=== PATIENT | male | born 1985 | race Two or more races ===

== ENCOUNTER 2016-12-11 20:22 | Emergency (ER) | payer MEDICAID ==
[~2016-12-11] VITALS: Ht 182.9 cm; Wt 113.4 kg
[2016-12-11 20:26] VITALS: BP 123/82
[2016-12-11] MEDS ORDERED: ONDANSETRON 4 MG TAB.RAPDIS ONE (22:28)
[2016-12-11] MEDS ORDERED: MAG HYDROX/AL HYDROX/SIMETH 30 ML UDC ONE (22:28)
[2016-12-11] MEDS ORDERED: MAG HYDROX/AL HYDROX/SIMETH 30 ML UDC PO ONE (22:30)
[2016-12-11] MEDS ORDERED: ONDANSETRON 4 MG TAB.RAPDIS SL ONE (22:30)
[2016-12-12] MEDS ORDERED: TETRACAINE HCL/PF 0.5% UD 2 ML BOTTLE ONE (21:39)
== END 2016-12-11 22:57 | disposition home or self-care (01) ==
LOC: ER 20:27
DX: K21.9 Gastro-esophageal reflux disease without esophagitis (principal); K92.0 Hematemesis; F10.10 Alcohol abuse, uncomplicated
CPT/HCPCS: 99283; A4606; Q0162; Z7610

== ENCOUNTER 2017-10-25 16:43 | Emergency (ER) | payer MEDICAID ==
[~2017-10-25] VITALS: Ht 188 cm; Wt 115.7 kg
[2017-10-25 16:43] VITALS: BP 135/78
[2017-10-25] MEDS ORDERED: ACETAMINOPHEN ES 500 MG TABLET ONE (17:20)
[2017-10-25] MEDS: ACETAMINOPHEN 325 MG TABLET PO ONE (17:24)
== END 2017-10-25 17:26 | disposition home or self-care (01) ==
LOC: ER 16:48
DX: H60.93 Unspecified otitis externa, bilateral (principal); F10.10 Alcohol abuse, uncomplicated; Y90.9 Presence of alcohol in blood, level not specified
CPT/HCPCS: A4606; Z7610

== ENCOUNTER 2019-04-05 19:12 | Emergency (ER) | payer MEDICAID ==
[~2019-04-05] VITALS: Ht 188 cm; Wt 117.9 kg
--- NOTE | 2019-04-05 19:58 | NUR ---
PT PRESENTED TO THE ER WITH A C/O RT EYE PAIN, REDNESS AND ITCHINESS. PT IS ALSO C/O A HEADACHE. PT AMBULATED WITH A STEADY GAIT. PT IS CURRENTLY TAKING OTC EYE DROPS.
[2019-04-05] MEDS ORDERED: FLUORESCEIN SODIUM OPHTH 1 EA STRIP ONE (20:29)
[2019-04-05] MEDS ORDERED: FLUORESCEIN SODIUM OPHTH 1 EA STRIP OP ONE (20:30)
[2019-04-05] MEDS ORDERED: TETRACAINE HCL 0.5% OPHTALMIC 15 ML BOTTLE OP ONE (20:30)
--- NOTE | 2019-04-05 20:35 | NUR ---
TETRICAINE AND FLOUR-I- STRIP IS AT THE BEDSIDE.
--- NOTE | 2019-04-05 20:55 | NUR ---
Chet MIRANDA, PAC IS AT THE BEDSIDE.
--- NOTE | 2019-04-05 21:04 | NUR ---
EYE EXAM IS FINISHED.
--- NOTE | 2019-04-05 21:10 | NUR ---
Chet MIRANDA, PAC IS AT THE BEDSIDE WITH THE NEHEMIAS PEN.
[2019-04-05] MEDS ORDERED: IBUPROFEN 600 MG TABLET PO ONE ×2 (21:30)
[2019-04-05] MEDS ORDERED: ACETAMINOPHEN ES 500 MG TABLET ONE (21:30)
[2019-04-05] MEDS ORDERED: ACETAMINOPHEN 325 MG TABLET PO ONE (21:30)
--- NOTE | 2019-04-05 21:43 | NUR ---
Patient discharged to home in stable condition. Written and verbal after care instructions given. Patient verbalizes understanding of instruction AND RX. PT'S FRIEND IS DRIVING PT HOME. VSS.
[2019-04-05 21:45] VITALS: BP 136/87
== END 2019-04-05 21:45 | disposition home or self-care (01) ==
LOC: ER 19:16
DX: H00.021 Hordeolum internum right upper eyelid (principal)

== ENCOUNTER 2023-01-03 18:54 | Emergency (ER) | payer MEDICAID ==
[~2023-01-03] VITALS: Ht 188 cm; Wt 117.9 kg
[2023-01-03 20:23] VITALS: TEMP 97.8
[2023-01-03 21:25] LABS: BASOPHILS % (AUTO) 0.5 % (0.0-2.0); EOSINOPHILS # (AUTO) 0.2 K/uL (0.0-0.7); EOSINOPHILS % (AUTO) 2.1 % (0.0-6.0); HEMATOCRIT 42 % (39-51); HEMOGLOBIN 14.2 g/dL (13.5-17.5); LYMPHOCYTES # (AUTO) 2.7 K/uL (0.8-4.8); LYMPHOCYTES % (AUTO) 37.2 % (20.0-44.0); MEAN CORPUSCULAR HEMOGLOBIN 31 PG (26.0-33.0); MEAN CORPUSCULAR HGB CONC 34 g/dl (31.0-36.0); MEAN CORPUSCULAR VOLUME 90 fL (80-96); MONOCYTES # (AUTO) 0.7 K/uL (0.1-1.30); NEUTROPHILS # (AUTO) 3.7 K/uL (1.8-8.9); NEUTROPHILS % (AUTO) 51.2 % (43.0-81.0); PLATELET COUNT (AUTO) 201 K/uL (150-450); RED BLOOD CELL COUNT(AUTO) 4.62 MIL/uL (4.5-6.0); RED CELL DISTRIBUTION WIDTH 12.5 % (11.5-15.0); WHITE BLOOD COUNT (AUTO) 7.2 K/uL (4.3-11.0)
[2023-01-03 21:36] LABS: CARBON DIOXIDE 27 mmol/L (21-32); CHLORIDE 104 mmol/L (98-107); GLUCOSE 93 mg/dL (74-106); POTASSIUM 3.6 mmol/L (3.5-5.1); SODIUM SERUM 138 mmol/L (136-145); UREA NITROGEN, BLOOD 12 mg/dL (7-18)
[2023-01-03 23:38] VITALS: BP 149/90; O2SAT 98
== END 2023-01-03 22:14 | disposition home or self-care (01) ==
LOC: ER 18:55
DX: F41.9 Anxiety disorder, unspecified (principal)
CPT/HCPCS: 36415; 71045-TC; 80048-TC; 84484-TC; 85025-TC